=== PATIENT | female | born 1995 | race Caucasian/White ===

== ENCOUNTER 2018-04-07 07:51 | Day surgery (SDC) | payer OTHER, SELFPAY ==
[2018-04-07] MEDS ORDERED: ceFAZolin IV 1 gm in Dextrose 1 GM/50 ML BAG IVPB ONE (08:49)
[2018-04-07] MEDS ORDERED: Clindamycin 2% Vaginal Cream(40 gm) ONE (08:49)
[2018-04-07] MEDS ORDERED: Bupivacaine 0.25% 20 ML INJ IJ ONE (09:21)
[2018-04-07] MEDS ORDERED: Propofol 10 mg/ml Inj (20 ML) ONE (09:33)
[2018-04-07] MEDS ORDERED: Midazolam 2 MG/2 ML VIAL ONE (09:33)
[2018-04-07] MEDS: HYDROmorphone 0.5 mg/0.5 ml ISec IVP PRN ×3 (11:07→11:38)
--- NOTE | 2018-04-07 11:10 | PCM.SURG1 ---
Surgeon's Initial Post Op Note - Surgeon's Notes Surgeon: Dr. Allie Mcgee Share[employer] Engineer: none Type of Anesthesia: General LMA Pre-Operative Diagnosis: perineal pain, right labia minora cyst Operative Findings: 5cm right labial sebaceous cyst, clitoris surgically absent from female circumcision Post-Operative Diagnosis: same Operation Performed: right labial cyst removal Specimen/Specimens Removed: right labial cyst and excess skin Estimated Blood Loss: EBL {In ML}: 200 Blood Products Given: N/A Drains Used: No Drains Post-Op Condition: Good Date of Surgery/Procedure: 04/07/18 Time of Surgery/Procedure: 09:45
[2018-04-07 11:19] VITALS: O2SAT 100
[2018-04-07 13:19] VITALS: RESP 16
[2018-04-07] MEDS ORDERED: Lactated Ringer's 1,000 ML IV ONE (15:00)
[2018-04-07 17:29] VITALS: BP 112/60; PULSE 82; TEMP 98
--- NOTE | 2018-04-10 07:37 | OP ---
PROCEDURE DATE: 04/07/2018 PREOPERATIVE DIAGNOSES: Perineal pain, right labia minora cyst status post female circumcision. POSTOPERATIVE DIAGNOSES: Perineal pain, right labia minora cyst status post female circumcision. INTRAOPERATIVE FINDINGS: A 5 cm right labial sebaceous cyst, clitoris surgically absent from female circumcision. PROCEDURE: Right labial cyst removal. SURGEON: Allie Mcgee MD STRIPPER COLOR: None. TYPE OF ANESTHESIA: General LMA. SPECIMEN: Right labial cyst and excess labial skin. ESTIMATED BLOOD LOSS: 200 mL. BLOOD PRODUCTS: None. DRAINS: No drains used. POSTOPERATIVE CONDITION: Stable. ADDITIONAL COMMENTS: All lap counts and instrument counts were correct x2. DESCRIPTION OF PROCEDURE: After all relevant documentation was reviewed and signed by , the patient was taken back to the OR room. She was prepped and draped in the usual sterile fashion after being placed in lithotomy position and under general anesthesia. Attention, was then placed to the labia minora where local anesthesia was injected and a vertical skin incision was then made with the use of a scalpel. The incision was then extended superiorly and inferiorly. The cyst capsule was then gently dissected off the vaginal epithelium until the entirety of the cyst was then removed. The remaining empty space was then reapproximated with the use of 2-0 Vicryl in a running locked fashion for excellent hemostasis. The excess skin was then removed and the skin was then reapproximated with the use of 4-0 Monocryl in a subcuticular fashion. Once again excellent hemostasis was noted. The patient was then awoken from general anesthesia and taken back to the recovery room in stable condition. Allie Mcgee MD
== END 2018-04-07 17:26 | disposition home or self-care (01) ==
LOC: C.SDS 07:51
PROVIDERS: ATTEND Obstetrics & Gynecology
DX: L72.0 Epidermal cyst (principal); N90.7 Vulvar cyst
CPT/HCPCS: 11423; 36415; 84702; 88305; J0690; J1170; J1885; J2250; J2405; J2704; J3010; J7120